=== PATIENT | female | born 1955 | race Hispanic/Latino ===

== ENCOUNTER → 2018-09-24 | Outpatient (CLI) | payer OTHER, MEDICARE ==
[~2018-09-24] MED LIST: GLIPIZIDE5 MG PO; LISINOPRIL5 MG PO; METFORMIN HCL1000 MG PO; TRADJENTA5 MG PO; VESICARE5 MG PO
--- NOTE | 2018-09-24 13:17 | Diagnostic Imaging Report ---
EXAM: Renal Ultrasound INDICATION: RENAL AGENESIS / GLYCOSURIA / NOCTURIA COMPARISON: Renal ultrasound 11/03/2015. TECHNIQUE: Transverse and longitudinal images of the kidneys and bladder were obtained. FINDINGS: Right Kidney: The right kidney is absent. Left Kidney: Length: Measures 13.5 x 6.5 x 6.1 cm Appearance: Normal echogenicity. Collecting system: No hydronephrosis Stones: None Cyst/Mass: None Bladder: Unremarkable appearance. Left ureteral jet is visualized. IMPRESSION: Absent right kidney. Unremarkable appearance of the left kidney. Signed by: Dr. Nguyễn Larson MD on 09/24/2018 1:14 PM
== END ==
LOC: US 10:27
PROVIDERS: ATTEND Urology
DX: Q60.2 Renal agenesis, unspecified (principal); R81 Glycosuria; R35.1 Nocturia
CPT/HCPCS: 76770

== ENCOUNTER → 2019-07-13 | Outpatient (CLI) | payer MEDICARE, OTHER ==
--- NOTE | 2019-07-13 15:40 | Diagnostic Imaging Report ---
EXAM: Renal Ultrasound INDICATION: ^URINARY TRACT INFECTION COMPARISON: Multiple prior renal ultrasounds, most recently of 09/24/2018 TECHNIQUE: Transverse and longitudinal images of the kidneys and bladder were obtained. FINDINGS: Right Kidney: Status post right nephrectomy Left Kidney: Length: 13.1 cm Appearance: Normal echogenicity. Collecting system: No hydronephrosis Stones: None Cyst/Mass: 9 x 6 x 8 mm anechoic lower pole simple cyst. Bladder: No mass or calculi. Left ureteral jet visualized. Prevoid volume estimate of 18.5 cc. IMPRESSION: Status post right nephrectomy. Anechoic left lower pole simple cyst. Signed by: Ugo Calvert MD on 07/13/2019 3:37 PM
== END ==
LOC: US 14:21
PROVIDERS: ATTEND Urology
DX: N39.0 Urinary tract infection, site not specified (principal)
CPT/HCPCS: 76770

== ENCOUNTER → 2021-06-01 | Outpatient (CLI) | payer MEDICARE, OTHER | LOC: US 08:44 | PROVIDERS: ATTEND Urology | DX: N39.0 Urinary tract infection, site not specified (principal) | CPT/HCPCS: 74018; 76770 ==